=== PATIENT | male | born 1955 | race Caucasian/White ===

== ENCOUNTER 2019-03-04 08:43 | Inpatient (IN) ==
[2019-03-04] MEDS ORDERED: Azithromycin 500 MG in D5% in Water 250 ML IVPB ONE (08:45)
[2019-03-04] MEDS ORDERED: 0.9 % Sodium Chloride 1,000 ML IVC ONE ×2 (08:45→10:08)
[2019-03-04] MEDS ORDERED: cefTRIAXone 2,000 MG in Water for inj. (sterile) 10 ML IVP ONE (08:45)
[2019-03-04] MEDS ORDERED: Ipratropium/Albuterol Neb 3 ML IH ONE (08:45)
[2019-03-04] MEDS ORDERED: methylPREDNISolone 125 MG/2 ML VIAL IVP ONE (08:45)
--- NOTE | 2019-03-04 08:52 | Emergency Department Note ---
Disposition Clinical Impression: Elevated troponin I level Pneumonia Qualifiers: Pneumonia type: due to unspecified organism Laterality: right Lung location: lower lobe of lung Qualified Code(s): J18.1 - Lobar pneumonia, unspecified organism Right rib fracture Qualifiers: Encounter type: initial encounter Rib fracture type: single rib Fracture type: closed Qualified Code(s): S22.31XA - Fracture of one rib, right side, initial encounter for closed fracture Acute renal failure Qualifiers: Acute renal failure type: unspecified Qualified Code(s): N17.9 - Acute kidney failure, unspecified Leukocytosis Qualifiers: Leukocytosis type: other Qualified Code(s): D72.828 - Other elevated white blood cell count Disposition: Admitted As Inpatient Condition: Fair Referrals: NONE,PCP [Non-Partnered Physician] - Forms: ED Satisfaction Letter Time of Disposition: 11:31 SOB HPI - General Chief Complaint: ED Shortness of Breath/Dyspnea Stated Complaint: SOB for days Time Seen by Provider: 03/04/19 08:45 Source: patient, EMS Mode of arrival: EMS Limitations: no limitations Nursing Notes Reviewed: Yes Vital Signs Reviewed: Yes - History of Present Illness Patient reports she has had increased cough and congestion for about one week. He has not had previous evaluation and states "I should have come in sooner". States had gradual increasing shortness of breath. The cough is deep and brings up rear thick phlegm with gradually increasing dyspnea and right-sided chest pain. Since he has an aching discomfort in his chest that is sharp in the right lower lateral chest with a cough. He does report fevers and chills. He does get occasional sweating with the fevers. He denies any jaw, back or arm pain. He denies any lower extremity changes because have trace edema. He denies any ill exposures and questions if he has been around some respiratory irritants. He thinks he was exposed to "germs". He is taking food and fluids without difficulty. Eyes abdominal pains, nausea, diarrhea or abnormal back pain. He arrives by EMS with an IV and an aerosol administered. He states he has a history of congenital heart disease with repair at age 7. He does not have history of coronary disease, diabetes, DVT or PE nor family history of heart disease. States he does have hypertension, elevated cholesterol, is a smoker and he does have elevated BMI. Pt Subjective Complaint: shortness of breath, cough, pain with inspiration, chest pain Onset (ago): week(s) (1) Context: recent illness Severity: moderate, severe Consistency/Duration: gradually worsening Improves with: rest, bronchodilators Worsens with: movement, coughing, inspiration Known history of: COPD Associated symptoms: Reports: chest pain, pain with inspiration, fever, cough, wheezing, sputum production, diaphoresis. Denies: orthopnea, lower extremity pain, polyuria, polydipsia, parasthesias, palpitations, hemoptysis, nausea/vomiting, syncope, abdominal pain, rash Treatment prior to arrival: oxygen, bronchodilator Cough present: Yes Cough Description: Voluntary, Productive, Moist, Wheezy Cough Frequency: Persistent Sputum production: Yes Sputum Amount: Small - Related Data Home oxygen amount: none Home Medications Medication Instructions Recorded Confirmed Atorvastatin [Lipitor] 40 mg PO HS 07/30/18 03/04/19 Lisinopril [Zestril] 40 mg PO DAILY 07/30/18 03/04/19 Loratadine [Allergy Relief] 10 mg PO DAILY 07/30/18 03/04/19 OxyCODONE/APAP 10/325 [Percocet 1 each PO Q6HR PRN 07/30/18 03/04/19 10/325 MG] Naproxen Sodium [Naprelan] 500 mg PO BID 03/04/19 03/04/19 Trazodone HCl 150 mg PO QPM 03/04/19 03/04/19 Previous Rx's Medication Instructions Recorded Guaifenesin [Mucinex] 1,200 mg PO BID #20 tbbp.12hr 12/14/18 Meloxicam 7.5 mg PO DAILY #10 tablet 12/14/18 predniSONE [PredniSONE] 40 mg PO DAILY #10 tablet 12/14/18 Allergies Allergy/AdvReac Type Severity Reaction Status Date / Time No Known Allergies Allergy Verified 10/28/15 19:44 All systems ED: reviewed and negative except as stated. Past Medical History - Past Medical History Attestation: Yes The following information was validated with the patient. Source: patient, old records reviewed, nursing notes reviewed Medical history: Reports: arthritis, COPD, hyperlipidemia, hypertension, other (Spinal stenosis, chronic low back pain). Denies: coronary artery disease Surgical history: Reports: herniorrhaphy, orthopedic, other (Back surgery for spinal stenosis) Psychiatric history: Reports: anxiety, depression - Social History Smoking Status: Current every day smoker Smokeless Tobacco Status: No Alcohol use: Reports: occasionally Drug use: Reports: none Physical Exam - General Limitations: no limitations General appearance: alert, anxious, in distress - Head Head exam: atraumatic, normocephalic, normal inspection - Eye Eye exam: Present: normal appearance, PERRL, EOMI - ENT ENT exam: normal exam, mucous membranes dry - Neck Neck exam: Present: normal inspection, full ROM, trachea midline - Chest Chest inspection: Present: normal inspection, symmetric chest wall rise - Respiratory Respiratory exam: Present: respiratory distress, wheezes, prolonged expiratory phase. Absent: accessory muscle use - Cardiovascular Cardiovascular exam: Present: regular rate, normal rhythm, normal heart sounds. Absent: tachycardia - Abdominal Exam Abdominal exam: Present: soft, Non-Tender, normal bowel sounds. Absent: tenderness, distention, guarding, rebound, rigidity - Extremities Exam Extremities exam: Present: normal inspection, full ROM, normal capillary refill, pedal edema (1+). Absent: tenderness, calf tenderness - Expanded Lower Extremity Exam Neurovascular/Tendon exam: Present: normal capillary refill Gait: not tested/not observed - Neurological Exam Neurological exam: Present: alert, oriented X3 - Psychiatric Psychiatric exam: Present: normal affect, anxious. Absent: agitated - Skin Skin exam: Present: warm, dry, intact, normal color. Absent: diaphoresis, pallor Course Course Narrative: 1009: With return of all testing, the patient has a significant leukocytosis, pneumonia, right-sided rib fracture and an elevated troponin with acute renal failure. Additional fluids have been ordered and a page placed to Dr. Francisco. I will discuss with him whether the patient is appropriate for this facility. 1015: Dr. Francisco desired the patient have a repeat troponin and this is been ordered for 11 AM. If this is not showing progressive elevation believes he can treat the pneumonia, chest wall pain and acute renal failure at this facility. If the troponin shows elevation in patient or he is not responding to treatment he advises that he can transfer the patient to a higher level of care tomorrow. 1131: Patient's repeat troponin is down to 0.05. Verbal orders have been obtained for this patient's observation. Vital Signs Temperature 97.6 F 03/04/19 08:44 Pulse Rate 88 03/04/19 08:44 Respiratory Rate 20 03/04/19 08:44 Blood Pressure 101/65 03/04/19 08:44 O2 Sat by Pulse Oximetry 92 03/04/19 08:44 Temperature 97.6 F 03/04/19 08:44 Pulse Rate 78 03/04/19 10:45 Respiratory Rate 18 03/04/19 10:45 Blood Pressure 109/63 03/04/19 10:45 O2 Sat by Pulse Oximetry 93 03/04/19 10:45 Oxygen Delivery Oxygen Delivery Nasal Cannula Shortness of Breath/Dyspnea - Differential Diagnosis Likely: acute exacerbation of chronic obstructive airways disease, congestive heart failure, pneumonia - Medical Records Medical records reviewed: Yes I reviewed the patient's medical records. - Lab Data Lab results reviewed: Yes I reviewed the patient's lab results. Result diagrams: 03/04/19 09:23 03/04/19 09:23 Lab Results 03/04/19 03/04/19 03/04/19 Range/Units 09:23 09:23 09:23 WBC 19.8 H (4.3-11.1) K/mcL RBC 4.25 (4.19-5.50) M/mcL Hgb 14.2 (12.9-16.9) g/dL Hct 41.1 (37.5-50.1) % MCV 96.7 (83.0-100.0) fL MCH 33.4 H (28.0-33.3) pg MCHC 34.5 (31.6-35.5) g/dL RDW 14.5 (11.5-14.5) % Plt Count 156 (140-400) K/mcL MPV 10.9 (9.4-12.4) fL Immature Gran % 1.4 (0-4) % Seg Neutrophils % 89.8 % Lymphocytes % 2.9 % Monocytes % 5.5 % Eosinophils % 0.1 % Basophils % 0.3 % Neutrophils # 17.8 H (1.6-8.9) K/mcL Lymphocytes # 0.6 (0.6-4.6) K/mcL Monocytes # 1.1 (0.0-1.3) K/mcL Eosinophils # 0.0 (0.0-0.6) K/mcL Basophils # 0.1 (0.0-0.2) K/mcL PT (9.4-12.1) Seconds INR Sodium 134 L (136-145) mEq/L Potassium 4.2 (3.5-5.1) mEq/L Chloride 98 (98-107) mEq/L Carbon Dioxide 26 (23-29) mEq/L BUN > 130 H (8-23) mg/dL Creatinine 3.74 H (0.70-1.30) mg/dL Est GFR ( Amer) 20 L (> 60) Est GFR (Non-Af Amer) 17 L (> 60) BUN/Creatinine Ratio TNP Glucose 148 H (70-105) mg/dL Calculated Osmolality TNP Lactic Acid (0.5-2.2) mmol/L Calcium 8.5 L (8.6-10.3) mg/dL Total Bilirubin 1.5 H (0.3-1.0) mg/dL Direct Bilirubin 0.9 H (0.0-0.2) mg/dL Indirect Bilirubin 0.6 (0.0-1.2) mg/dL AST 76 H (13-39) Units/L ALT 38 (7-52) Units/L Alkaline Phosphatase 206 H (34-104) Units/L Troponin I 0.07 H* (< 0.04) ng/mL B-Natriuretic Peptide 168 H (Less than 100) pg/mL Serum Total Protein 6.6 (6.4-8.9) g/dL Albumin 2.9 L (3.5-5.7) g/dL Globulin 3.7 H (2.4-3.5) g/dL Albumin/Globulin Ratio 0.8 L (1.1-2.2) 03/04/19 03/04/19 03/04/19 Range/Units 09:23 09:32 10:58 WBC (4.3-11.1) K/mcL RBC (4.19-5.50) M/mcL Hgb (12.9-16.9) g/dL Hct (37.5-50.1) % MCV (83.0-100.0) fL MCH (28.0-33.3) pg MCHC (31.6-35.5) g/dL RDW (11.5-14.5) % Plt Count (140-400) K/mcL MPV (9.4-12.4) fL Immature Gran % (0-4) % Seg Neutrophils % % Lymphocytes % % Monocytes % % Eosinophils % % Basophils % % Neutrophils # (1.6-8.9) K/mcL Lymphocytes # (0.6-4.6) K/mcL Monocytes # (0.0-1.3) K/mcL Eosinophils # (0.0-0.6) K/mcL Basophils # (0.0-0.2) K/mcL PT 15.5 H (9.4-12.1) Seconds INR 1.4 Sodium (136-145) mEq/L Potassium (3.5-5.1) mEq/L Chloride (98-107) mEq/L Carbon Dioxide (23-29) mEq/L BUN (8-23) mg/dL Creatinine (0.70-1.30) mg/dL Est GFR ( Amer) (> 60) Est GFR (Non-Af Amer) (> 60) BUN/Creatinine Ratio Glucose (70-105) mg/dL Calculated Osmolality Lactic Acid 1.5 (0.5-2.2) mmol/L Calcium (8.6-10.3) mg/dL Total Bilirubin (0.3-1.0) mg/dL Direct Bilirubin (0.0-0.2) mg/dL Indirect Bilirubin (0.0-1.2) mg/dL AST (13-39) Units/L ALT (7-52) Units/L Alkaline Phosphatase (34-104) Units/L Troponin I 0.05 H* (< 0.04) ng/mL B-Natriuretic Peptide (Less than 100) pg/mL Serum Total Protein (6.4-8.9) g/dL Albumin (3.5-5.7) g/dL Globulin (2.4-3.5) g/dL Albumin/Globulin Ratio (1.1-2.2) - Radiology Data Radiology results reviewed: Yes I reviewed the patient's radiology results. Single view chest x-rays performed. This demonstrates right lower lobe infi ltrate. Patient does not have fusion, pneumothorax or abnormal cardiac silhouette. Patient does have a right seventh rib fracture and a sharply demarcated density in the lung in this area. Neither finding was present on comparison film from 10/28/2015. Impressions Chest X-Ray 03/04/19 08:45 IMPRESSION: Patchy right lower lobe airspace disease could indicate evolving pneumonia. Follow-up x-ray recommended to assure resolution. D/ / 03/04/2019 09:23:33 Ajay Franz MD / Liz Lopez Interpreting Provider: Ajay Franz MD - EKG Data EKG attestation: Yes I reviewed and interpreted this EKG. EKG shows normal: Reports: sinus rhythm, axis, intervals, ST-T waves Rate: Reports: normal (83) [place]/QRS: Reports: RBBB Interpretation: Reports: no acute changes
[2019-03-04] MEDS ORDERED: Ketorolac 30 MG/ML VIAL IVP ONE (09:08)
[2019-03-04] MEDS ORDERED: *HR* HYDROcodone/Acet 5/325 mg TABLET PO ONE (09:08)
[2019-03-04 09:31] LABS: Basophils # 0.1 K/mcL (0.0-0.2); Basophils % 0.3 %; Eosinophils % 0.1 %; Hematocrit 41.1 % (37.5-50.1); Hemoglobin 14.2 g/dL (12.9-16.9); Immature Granulocytes % 1.4 % (0-4); Lymphocytes # 0.6 K/mcL (0.6-4.6); Lymphocytes % 2.9 %; Mean Corpuscular HGB Conc 34.5 g/dL (31.6-35.5); Mean Corpuscular Hemoglobin 33.4 pg (28.0-33.3); Mean Corpuscular Volume 96.7 fL (83.0-100.0); Mean Platelet Volume 10.9 fL (9.4-12.4); Monocytes # 1.1 K/mcL (0.0-1.3); Monocytes % 5.5 %; Neutrophils # 17.8 K/mcL (1.6-8.9); Platelet Count 156 K/mcL (140-400); Red Blood Count 4.25 M/mcL (4.19-5.50); Red Cell Distribution Width 14.5 % (11.5-14.5); Segmented Neutrophils % 89.8 %; White Blood Count 19.8 K/mcL (4.3-11.1)
[2019-03-04 09:39] LABS: INR 1.4; Prothrombin Time 15.5 Seconds (9.4-12.1)
[2019-03-04 09:50] LABS: Alanine Aminotransferase 38 Units/L (7-52); Albumin 2.9 g/dL (3.5-5.7); Albumin/Globulin Ratio 0.8 (1.1-2.2); Alkaline Phosphatase 206 Units/L (34-104); Aspartate Amino Transferase 76 Units/L (13-39); Bilirubin,Direct 0.9 mg/dL (0.0-0.2); Bilirubin,Indirect 0.6 mg/dL (0.0-1.2); Bilirubin,Total 1.5 mg/dL (0.3-1.0); Blood Urea Nitrogen > 130 mg/dL (8-23); Calcium 8.5 mg/dL (8.6-10.3); Carbon Dioxide 26 mEq/L (23-29); Chloride 98 mEq/L (98-107); Globulin 3.7 g/dL (2.4-3.5); Glucose 148 mg/dL (70-105); Potassium 4.2 mEq/L (3.5-5.1); Sodium 134 mEq/L (136-145); Total Protein 6.6 g/dL (6.4-8.9); Troponin I 0.07 ng/mL (< 0.04); eGFR For African Americans 20 (> 60); eGFR For Non-African Americans 17 (> 60)
[2019-03-04] MEDS ORDERED: 0.9 % Sodium Chloride 1,000 ML IVC SCH ×2 (10:15→14:17)
[2019-03-04] MEDS ORDERED: MOM Conc 10 ML UD.LIQ PO PRN (14:17)
[2019-03-04] MEDS ORDERED: Albuterol 2.5 MG/3 ML NEBULIZER IH PRN (14:17)
[2019-03-04] MEDS ORDERED: Naloxone 0.4 MG/ML INJ IVP PRN (14:17)
[2019-03-04] MEDS ORDERED: Mag Hydrox/Al Hydrox/Simeth 30 ML UDC PO PRN (14:17)
[2019-03-04] MEDS ORDERED: Acetaminophen 325 MG TABLET PO PRN (14:17)
[2019-03-04] MEDS ORDERED: Ondansetron ODT 4 MG TAB.RAPDIS SL PRN (14:17)
[2019-03-04] MEDS ORDERED: Ipratropium/Albuterol Neb 3 ML IH SCH (16:00)
[2019-03-04] MEDS ORDERED: predniSONE 20 MG TABLET PO SCH (17:00)
--- NOTE | 2019-03-04 18:04 | Internal Med History&Physical ---
Date of Encounter: 03/04/19 Time of Encounter: 17:35 Assessment and Plan (1) Acute renal failure Current visit: Yes Status: Acute Likely multifactorial due to poor oral intake and NSAID use. IV fluids have been ordered. Repeat labs will be done in a.m. Qualifiers: Acute renal failure type: unspecified Qualified Code(s): N17.9 - Acute kidney failure, unspecified (2) Pneumonia Current visit: Yes Status: Acute Rocephin and Zithromax have been started. Lactobacillus will be added. Qualifiers: Pneumonia type: due to unspecified organism Laterality: right Lung location: lower lobe of lung Qualified Code(s): J18.1 - Lobar pneumonia, unspecified organism (3) Hypertension Current visit: No Status: Chronic Blood pressure borderline low. Medications will be held at this time. Qualifiers: Hypertension type: essential hypertension Qualified Code(s): I10 - Essential (primary) hypertension (4) Elevated troponin I level Current visit: Yes Status: Acute Suspect troponin leak due to demand ischemia. Continue to monitor. Internal Medicine - H&P: HPI Chief complaint: Cough and dyspnea Admitted From: Emergency Dept Plans for Post Hospital Care: Home History of present illness: Mr. Barrera is a 63 year old male who came to emergency room complaining of two-week history of cough and dyspnea. He had fevers and chills but denies vomiting or diarrhea. He reports chronic pain "all over". He was evaluated in emergency room and was found to have evidence of right lower lobe pneumonia and acute renal failure. He was admitted to [facility] floor for ongoing care needs. His respiratory history is significant for having smoked since age 16 up to 3 packs per day. He reports having pulmonary function testing in 2015 and was told he had COPD. He does not wear home oxygen. He has not been tested for sleep apnea. He states his oral intake has been decreased in the past 3 days because of the infection symptoms. Chest CTA 12/14/2018 showed right seventh- ninth rib fractures posteriorly but no obvious pneumonia or other worrisome pathology indicating malignancy. Past Med Surg Social Fam HX - Past Medical History Medical history: arthritis, COPD, hyperlipidemia, hypertension, other Additional medical history: spinal stonisis Psychiatric history: anxiety, depression - Past Surgical History Surgical History: herniorrhaphy, orthopedic, other (Back surgery for spinal stenosis) Additional surgical history: back surgery, spinal stenosis - Social History Smoking Status: Current every day smoker Smokeless Tobacco Status: No Alcohol use: none, occasionally Drug use: none Internal Medicine - H&P: Meds Atorvastatin [Lipitor] 40 mg PO HS 07/30/18 [History] Lisinopril [Zestril] 40 mg PO DAILY 07/30/18 [History] Loratadine [Allergy Relief] 10 mg PO DAILY 07/30/18 [History] OxyCODONE/APAP 10/325 [Percocet 10/325 MG] 1 each PO Q6HR PRN 07/30/18 [History] Guaifenesin [Mucinex] 1,200 mg PO BID #20 tbbp.12hr 12/14/18 [Rx] Meloxicam 7.5 mg PO DAILY #10 tablet 12/14/18 [Rx] predniSONE [PredniSONE] 40 mg PO DAILY #10 tablet 12/14/18 [Rx] Naproxen Sodium [Naprelan] 500 mg PO BID 03/04/19 [History] Trazodone HCl 150 mg PO QPM 03/04/19 [History] Allergy/AdvReac Type Severity Reaction Status Date / Time No Known Allergies Allergy Verified 10/28/15 19:44 All Systems PM: A 10-system review of systems was performed and is negative for pertinent findings except as documented above in the HPI. Review of systems: Review of systems from his October 2015 [facility] hospitalization were reviewed and revised as below. Gen.: His weight has increased from 100.834 kg on 10/30/2015 to 116.392 kg on admission now. Cardiovascular: He has history of hypertension. He had heart surgery at age 7 for "a hole in his heart". He does not know further details. He claims he had an exercise stress test in 2014 which was unremarkable. He denies MA heart failure DVT or pulmonary embolus. Respiratory: As per history of present illness GI: He denies disorders of his liver gallbladder or exocrine pancreas : He denies hematuria dysuria or kidney stones Neurologic: He denies large distribution strokes or seizures. Endocrine: He denies diabetes or thyroid disease but does have hyperlipidemia Hematology/oncology: He denies blood disorders cancer or anemia Psychiatric: He has depression but denies anxiety or other mental health issues Musculoskeletal. He has spinal stenosis and reports surgery approximately 2017. He denies arthritis gout or other bone joint or muscle disorders. - Constitutional Vitals: Temp Pulse Resp BP Pulse Ox 98.2 F 60 14 100/64 90 03/04/19 14:35 03/04/19 14:35 03/04/19 16:35 03/04/19 14:35 03/04/19 16:35 Exam: Gen.: He is a well-developed well-nourished male lying in bed who appears slightly dyspneic and coughs occasionally during exam. HEENT: Head is atraumatic normocephalic. Eyes: EOMI. There is no scleral icterus. Mouth: Mucosa is moist. Neck: Supple and nontender. There is no thyromegaly or adenopathy noted. Heart: Regular without murmurs gallops or ectopics. Tones are soft. Lungs: He has slight prolonged expiratory phase with very minimal wheezing. No inspiratory crackles are heard. Abdomen: Soft and nontender. No masses or guarding are noted. Extremities: There is no cyanosis edema or clubbing noted. Dorsalis pedis and posterior tibial pulses are trace palpable bilaterally. His feet are cool to touch. Neurologic: Mental status: He is talkative and a fair to good historian. He does not remember some details of his history. Cranial nerves: Smile is symmetric. Forehead wrinkles bilaterally. Tongue protrudes midline. EOMI. Motor: There is no pronator drift. Cerebellar: Finger to nose is intact bilaterally. Skin: Warm and dry Internal Med - H&P Results - Labs CBC & Chem 7: 03/04/19 09:23 03/04/19 09:23 Labs: Short CBC 03/04/19 Range/Units 09:23 WBC 19.8 H (4.3-11.1) K/mcL Hgb 14.2 (12.9-16.9) g/dL Hct 41.1 (37.5-50.1) % Plt Count 156 (140-400) K/mcL Neutrophils # 17.8 H (1.6-8.9) K/mcL BMP 03/04/19 09:23 Sodium 134 L Potassium 4.2 Chloride 98 Carbon Dioxide 26 BUN > 130 H Creatinine 3.74 H Glucose 148 H Calcium 8.5 L Cardiac Enzymes 03/04/19 03/04/19 03/04/19 Range/Units 09:23 10:58 14:25 Troponin I 0.07 H* 0.05 H* 0.05 H* (< 0.04) ng/mL Liver Function 03/04/19 Range/Units 09:23 Total Bilirubin 1.5 H (0.3-1.0) mg/dL Direct Bilirubin 0.9 H (0.0-0.2) mg/dL AST 76 H (13-39) Units/L ALT 38 (7-52) Units/L Alkaline Phosphatase 206 H (34-104) Units/L Albumin 2.9 L (3.5-5.7) g/dL - Impressions ITS Impressions Chest X-Ray 03/04/19 08:45 IMPRESSION: Patchy right lower lobe airspace disease could indicate evolving pneumonia. Follow-up x-ray recommended to assure resolution. D/ / 03/04/2019 09:23:33 Ajay Franz MD / Liz Lopez Interpreting Provider: Ajay Franz MD
[2019-03-04] MEDS: traZODone 50 MG TABLET PO SCH (21:17)
[2019-03-04] MEDS: Lactobacillus 1 EACH CAP.SPRINK PO SCH (21:18)
[2019-03-04] MEDS: Budesonide/Formoterol 160/4.5 1 PUFF INH IH SCH (21:19)
--- NOTE | 2019-03-04 23:02 | Electrocardiograph Report ---
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
[2019-03-05 02:41] LABS: Basophils % 0.1 %; Hematocrit 38.8 % (37.5-50.1); Hemoglobin 13.6 g/dL (12.9-16.9); Immature Granulocytes % 1.1 % (0-4); Lymphocytes # 0.5 K/mcL (0.6-4.6); Lymphocytes % 2.9 %; Mean Corpuscular HGB Conc 35.1 g/dL (31.6-35.5); Mean Corpuscular Hemoglobin 33.6 pg (28.0-33.3); Mean Corpuscular Volume 95.8 fL (83.0-100.0); Mean Platelet Volume 11.2 fL (9.4-12.4); Monocytes # 0.6 K/mcL (0.0-1.3); Monocytes % 3.7 %; Neutrophils # 14.9 K/mcL (1.6-8.9); Platelet Count 154 K/mcL (140-400); Red Blood Count 4.05 M/mcL (4.19-5.50); Red Cell Distribution Width 14.5 % (11.5-14.5); Segmented Neutrophils % 92.2 %; White Blood Count 16.2 K/mcL (4.3-11.1)
[2019-03-05 02:57] LABS: Calcium 8.2 mg/dL (8.6-10.3); Potassium 4.5 mEq/L (3.5-5.1)
[2019-03-05] MEDS: *HR* OxyCODONE/APAP 10/325 TABLET PO PRN ×3 (04:32→22:12)
[2019-03-05] MEDS: cefTRIAXone 1,000 MG in Water for inj. (sterile) 10 ML IVP SCH (08:17)
[2019-03-05] MEDS: Aspirin 81 MG TAB.CHEW PO SCH (08:17)
[2019-03-05] MEDS: Lactobacillus 1 EACH CAP.SPRINK PO SCH ×2 (08:17→22:07)
[2019-03-05] MEDS: Azithromycin 500 MG in D5% in Water 250 ML IVPB SCH (08:17)
[2019-03-05] MEDS ORDERED: Lisinopril 20 MG TABLET PO SCH (09:00)
[2019-03-05] MEDS ORDERED: Loratadine 10 MG TABLET PO SCH (09:00)
--- NOTE | 2019-03-05 09:25 | Internal Med Progress Note ---
Date of Encounter: 03/05/19 Time of Encounter: 09:17 - Assessment and plan (1) Acute renal failure Current Visit: Yes Status: Acute Assessment and plan: March 05. BUN and creatinine significantly improved to 113 and 2.16 respectively with estimated GFR 31. Continue IV fluids and withholding NSAIDs. Recheck labs in a.m. Qualifiers: Acute renal failure type: unspecified Qualified Code(s): N17.9 - Acute kidney failure, unspecified (2) Pneumonia Current Visit: Yes Status: Acute Assessment and plan: March 05. WBC decreased to 16.2. Continue Rocephin and Zithromax with lact obacillus. Qualifiers: Pneumonia type: due to unspecified organism Laterality: right Lung location: lower lobe of lung Qualified Code(s): J18.1 - Lobar pneumonia, unspecified organism (3) Hypertension Current Visit: No Status: Chronic Assessment and plan: March 05. Blood pressure remains stable off medication. Qualifiers: Hypertension type: essential hypertension Qualified Code(s): I10 - Essential (primary) hypertension (4) Elevated troponin I level Current Visit: Yes Status: Acute Assessment and plan: March 05. Troponin has trended downward since admission. Continue to observe. - Subjective Interval history: March 05. He has no new complaints and feels better. - Constitutional Vitals: Temp Pulse Resp BP Pulse Ox 98.3 F 60 17 115/67 90 03/05/19 07:36 03/05/19 07:36 03/05/19 07:36 03/05/19 07:36 03/05/19 07:36 Exam: He has resting comfortably in bed and appears in no acute distress. He did not cough during examination. His lungs show no wheezes or crackles. I reviewed his medications and lab results. Internal Medicine: Result - Labs CBC & Chem 7: 03/05/19 02:30 03/05/19 02:30 Labs: Short CBC 03/04/19 03/05/19 Range/Units 09:23 02:30 WBC 19.8 H 16.2 H (4.3-11.1) K/mcL Hgb 14.2 13.6 (12.9-16.9) g/dL Hct 41.1 38.8 (37.5-50.1) % Plt Count 156 154 (140-400) K/mcL Neutrophils # 17.8 H 14.9 H (1.6-8.9) K/mcL BMP 03/04/19 03/05/19 09:23 02:30 Sodium 134 L 137 Potassium 4.2 4.5 Chloride 98 106 Carbon Dioxide 26 22 L BUN > 130 H 113 H Creatinine 3.74 H 2.16 H Glucose 148 H 143 H Calcium 8.5 L 8.2 L Cardiac Enzymes 03/04/19 03/04/19 03/04/19 Range/Units 09:23 10:58 14:25 Troponin I 0.07 H* 0.05 H* 0.05 H* (< 0.04) ng/mL 03/04/19 03/05/19 Range/Units 20:35 02:30 Troponin I 0.04 H* 0.04 H* (< 0.04) ng/mL Liver Function 03/04/19 Range/Units 09:23 Total Bilirubin 1.5 H (0.3-1.0) mg/dL Direct Bilirubin 0.9 H (0.0-0.2) mg/dL AST 76 H (13-39) Units/L ALT 38 (7-52) Units/L Alkaline Phosphatase 206 H (34-104) Units/L Albumin 2.9 L (3.5-5.7) g/dL - ABG Interpretation ABG results: PT/INR, D-dimer PT 15.5 Seconds (9.4-12.1) H 03/04/19 09:23 - Impressions Impressions Chest X-Ray 03/04/19 08:45 IMPRESSION: Patchy right lower lobe airspace disease could indicate evolving pneumonia. Follow-up x-ray recommended to assure resolution. D/ / 03/04/2019 09:23:33 Ajay Franz MD / Liz Lopez Interpreting Provider: Ajay Franz MD Consult Discharge Plan - Plan Referrals: Ramirez Almonte [Primary Care Provider] - 1 week
[2019-03-05] MEDS: Budesonide/Formoterol 160/4.5 1 PUFF INH IH SCH ×2 (10:30→22:48)
[2019-03-05] MEDS: traZODone 50 MG TABLET PO SCH (22:07)
[2019-03-06] MEDS: *HR* Enoxaparin 30 MG/0.3 ML SYRINGE SQ SCH (05:30)
[2019-03-06] MEDS: *HR* OxyCODONE/APAP 10/325 TABLET PO PRN ×2 (05:30→11:40)
[2019-03-06 06:58] LABS: Basophils % 0.2 %; Eosinophils % 0.1 %; Hematocrit 41.4 % (37.5-50.1); Hemoglobin 13.9 g/dL (12.9-16.9); Immature Granulocytes % 0.8 % (0-4); Lymphocytes # 1.1 K/mcL (0.6-4.6); Lymphocytes % 6.9 %; Mean Corpuscular HGB Conc 33.6 g/dL (31.6-35.5); Mean Corpuscular Volume 98.3 fL (83.0-100.0); Monocytes # 0.8 K/mcL (0.0-1.3); Monocytes % 5.1 %; Platelet Count 203 K/mcL (140-400); Red Blood Count 4.21 M/mcL (4.19-5.50); Red Cell Distribution Width 15.3 % (11.5-14.5); Segmented Neutrophils % 86.9 %; White Blood Count 15.7 K/mcL (4.3-11.1)
[2019-03-06 07:15] LABS: BUN/Creatinine Ratio 54 (6-26); Blood Urea Nitrogen 72 mg/dL (8-23); Calcium 8.5 mg/dL (8.6-10.3); Carbon Dioxide 25 mEq/L (23-29); Chloride 106 mEq/L (98-107); Glucose 83 mg/dL (70-105); Osmolality,Calculated 306 (280-300); Potassium 4.7 mEq/L (3.5-5.1); Sodium 138 mEq/L (136-145); Uric Acid 7.4 mg/dL (2.3-7.6); eGFR For African Americans > 60 (> 60); eGFR For Non-African Americans 54 (> 60)
[2019-03-06 07:19] LABS: Neutrophils # 13.6 K/mcL (1.6-8.9)
[2019-03-06] MEDS: cefTRIAXone 1,000 MG in Water for inj. (sterile) 10 ML IVP SCH (09:51)
[2019-03-06] MEDS: Aspirin 81 MG TAB.CHEW PO SCH (09:51)
[2019-03-06] MEDS: Lactobacillus 1 EACH CAP.SPRINK PO SCH ×2 (09:51→19:51)
[2019-03-06] MEDS: Azithromycin 500 MG in D5% in Water 250 ML IVPB SCH (09:52)
[2019-03-06] MEDS: Budesonide/Formoterol 160/4.5 1 PUFF INH IH SCH ×2 (10:29→22:08)
[2019-03-06] MEDS ORDERED: Colchicine 0.6 MG TABLET PO SCH (10:30)
--- NOTE | 2019-03-06 11:02 | Internal Med Progress Note ---
Date of Encounter: 03/06/19 Time of Encounter: 10:20 - Assessment and plan (1) Acute renal failure Current Visit: Yes Status: Acute Assessment and plan: March 05. BUN and creatinine significantly improved to 113 and 2.16 respectively with estimated GFR 31. Continue IV fluids and withholding NSAIDs. Recheck labs in a.m. March 06. BN and creatinine further improved to 72 and 1.34 respectively with estimated GFR 54. Continue IV fluids and monitor renal indices. Qualifiers: Acute renal failure type: unspecified Qualified Code(s): N17.9 - Acute kidney failure, unspecified (2) Pneumonia Current Visit: Yes Status: Acute Assessment and plan: March 05. WBC decreased to 16.2. Continue Rocephin and Zithromax with lactobacillus. March 06. WBC further decreased 15.7 with decrease in left shift on differential. Continue Rocephin and Zithromax with lactobacillus. Qualifiers: Pneumonia type: due to unspecified organism Laterality: right Lung location: lower lobe of lung Qualified Code(s): J18.1 - Lobar pneumonia, unspecified organism (3) Hypertension Current Visit: No Status: Chronic Assessment and plan: March 05. Blood pressure remains stable off medication. Qualifiers: Hypertension type: essential hypertension Qualified Code(s): I10 - Essential (primary) hypertension (4) Elevated troponin I level Current Visit: Yes Status: Acute Assessment and plan: March 05. Troponin has trended downward since admission. Continue to observe. (5) Right wrist pain Current Visit: Yes Status: Acute Assessment and plan: March 06. Uric acid level 7.4. He will be given colchicine and prednisone. Avoid NSAIDs due to renal function. Reassess in a.m. - Subjective Interval history: March 05. He has no new complaints and feels better. March 06. He complains of pain in his right wrist that has developed since yesterday. No other joints are similarly effective although he states he "hurts all over" occasionally. He denies injury or knowledge of gout. - Constitutional Vitals: Temp Pulse Resp BP Pulse Ox 98.8 F 59 20 102/67 92 03/06/19 07:16 03/06/19 07:16 03/06/19 07:16 03/06/19 07:16 03/06/19 07:16 Exam: There is slight increased warmth redness and swelling in the right wrist with pain on passive range of motion. The left wrist is unremarkable. His lungs show slight egophony in the right posterior upper lung field. Left lung is unremarkable. I reviewed his medications and lab results. Internal Medicine: Result - Labs CBC & Chem 7: 03/06/19 05:51 03/06/19 05:51 Labs: Short CBC 03/06/19 Range/Units 05:51 WBC 15.7 H (4.3-11.1) K/mcL Hgb 13.9 (12.9-16.9) g/dL Hct 41.4 (37.5-50.1) % Plt Count 203 (140-400) K/mcL Neutrophils # 13.6 H (1.6-8.9) K/mcL BMP 03/06/19 05:51 Sodium 138 Potassium 4.7 Chloride 106 Carbon Dioxide 25 BUN 72 H Creatinine 1.34 H Glucose 83 Calcium 8.5 L - ABG Interpretation ABG results: PT/INR, D-dimer PT 15.5 Seconds (9.4-12.1) H 03/04/19 09:23 Consult Discharge Plan - Plan Referrals: Ramirez Almonte [Primary Care Provider] - 1 week
[2019-03-06] MEDS: predniSONE 20 MG TABLET PO SCH ×2 (11:39→18:44)
[2019-03-06] MEDS: Acetaminophen 325 MG TABLET PO SCH ×3 (11:39→23:08)
[2019-03-06] MEDS: traZODone 50 MG TABLET PO SCH (19:51)
[2019-03-07] MEDS: Acetaminophen 325 MG TABLET PO SCH (05:12)
[2019-03-07] MEDS: *HR* Enoxaparin 30 MG/0.3 ML SYRINGE SQ SCH (05:12)
[2019-03-07 06:17] LABS: Basophils % 0.1 %; Hematocrit 38.5 % (37.5-50.1); Immature Granulocytes % 0.9 % (0-4); Lymphocytes # 0.8 K/mcL (0.6-4.6); Mean Corpuscular HGB Conc 33.8 g/dL (31.6-35.5); Mean Corpuscular Hemoglobin 33.4 pg (28.0-33.3); Mean Platelet Volume 10.9 fL (9.4-12.4); Monocytes # 0.7 K/mcL (0.0-1.3); Monocytes % 4.2 %; Platelet Count 202 K/mcL (140-400); Red Blood Count 3.89 M/mcL (4.19-5.50); Red Cell Distribution Width 15.3 % (11.5-14.5); Segmented Neutrophils % 89.8 %; White Blood Count 15.9 K/mcL (4.3-11.1)
[2019-03-07 06:18] LABS: Neutrophils # 14.3 K/mcL (1.6-8.9)
[2019-03-07 06:36] LABS: BUN/Creatinine Ratio 46 (6-26); Blood Urea Nitrogen 45 mg/dL (8-23); Calcium 8.3 mg/dL (8.6-10.3); Carbon Dioxide 27 mEq/L (23-29); Chloride 106 mEq/L (98-107); Glucose 113 mg/dL (70-105); Osmolality,Calculated 294 (280-300); Potassium 5.3 mEq/L (3.5-5.1); Sodium 136 mEq/L (136-145); eGFR For African Americans > 60 (> 60); eGFR For Non-African Americans > 60 (> 60)
[2019-03-07 07:57] VITALS: BP 121/71
[2019-03-07] MEDS: Budesonide/Formoterol 160/4.5 1 PUFF INH IH SCH (09:06)
[2019-03-07] MEDS: cefTRIAXone 1,000 MG in Water for inj. (sterile) 10 ML IVP SCH (09:59)
[2019-03-07] MEDS: Aspirin 81 MG TAB.CHEW PO SCH (10:00)
[2019-03-07] MEDS: Azithromycin 500 MG in D5% in Water 250 ML IVPB SCH (10:00)
[2019-03-07] MEDS: Lactobacillus 1 EACH CAP.SPRINK PO SCH (10:00)
[2019-03-07] MEDS: predniSONE 20 MG TABLET PO SCH (10:01)
--- NOTE | 2019-03-07 10:13 | Discharge Summary ---
Date of Encounter: 03/07/19 Time of Encounter: 10:00 - Discharge Diagnosis (1) Acute renal failure Priority: Primary Status: Acute Qualifiers: Acute renal failure type: unspecified Qualified Code(s): N17.9 - Acute kidney failure, unspecified (2) Pneumonia Priority: Secondary Status: Acute Qualifiers: Pneumonia type: due to unspecified organism Laterality: right Lung location: lower lobe of lung Qualified Code(s): J18.1 - Lobar pneumonia, unspecified organism (3) Hypertension Priority: Secondary Status: Chronic Qualifiers: Hypertension type: essential hypertension Qualified Code(s): I10 - Essential (primary) hypertension (4) Elevated troponin I level Priority: Secondary Status: Acute (5) Right wrist pain Priority: Secondary Status: Acute Hospital course: Mr. Barrera is a 63 year old male who came to emergency room complaining of two-week history of cough and dyspnea. He had fevers and chills but denies vomiting or diarrhea. He reports chronic pain "all over". He was evaluated in emergency room and was found to have evidence of right lower lobe pneumonia and acute renal failure. He was admitted to [facility] for ongoing care needs. Initial orders were written by the emergency room physician. I saw him on March 04 and performed the history and physical. He was started on IV fluids. NSAIDs and lisinopril were held. Azotemia significantly improved with BUN and creatinine decreased to 45 and 0.97 respectively by day of discharge with estimated GFR> 60. He will remain off lisinopril and NSAIDs at discharge. Blood pressure remained satisfactory. He was started on Rocephin and Zithromax empirically for pneumonia. WBC decreased to 15.9 by day of discharge with left shift still present on differential. He remained afebrile throughout his hospital stay however. He will be prescribed Ceftin and Zithromax with lactobacillus for 3 additional days at discharge. His PCP can monitor ongoing recovery. He complained of pain in his right wrist on March 06. No other joints were similarly affected. Uric acid level returned at 7.4. He was started on prednisone and colchicine. There was significant decrease in the pain by the following day. He will be started on allopurinol at discharge and received 2 additional days of colchicine and 3 additional days of prednisone. His PCP can monitor. I encouraged him to become a nonsmoker. Room air oximetry will be checked on 6 minute walk prior to discharge. He will follow with his PCP Ramirez Almonte CNP within 1 week. - Time Spent with Patient Total time spent providing and/or coordinating discharge services: - Discharge Medications Prescriptions: New Cefuroxime PO [Ceftin] 500 mg PO Q12HR #6 tablet Colchicine [Colcrys] 0.6 mg PO DAILY #2 tablet Lactobacillus [Culturelle] 1 each PO BID #6 cap.sprink predniSONE [PredniSONE] 10 mg PO BIDWM #6 tablet Azithromycin [Zithromax] 250 mg PO DAILY #3 tablet Allopurinol [Zyloprim 100 MG] 100 mg PO DAILY #30 tablet Continued OxyCODONE/APAP 10/325 [Percocet 10/325 MG] 1 each PO Q6HR PRN PRN Reason: Pain Atorvastatin [Lipitor] 40 mg PO HS Guaifenesin [Mucinex] 1,200 mg PO BID #20 tbbp.12hr Trazodone HCl 150 mg PO QPM Fluticasone/Umeclidin/Vilanter [Trelegy Ellipta 100-62.5-25] 1 each IH BID Discontinued Loratadine [Allergy Relief] 10 mg PO DAILY Lisinopril [Zestril] 40 mg PO DAILY Meloxicam 7.5 mg PO DAILY #10 tablet predniSONE [PredniSONE] 40 mg PO DAILY #10 tablet Naproxen Sodium [Naprelan] 500 mg PO BID Home Medications: Atorvastatin [Lipitor] 40 mg PO HS 07/30/18 [History] OxyCODONE/APAP 10/325 [Percocet 10/325 MG] 1 each PO Q6HR PRN 07/30/18 [History] Guaifenesin [Mucinex] 1,200 mg PO BID #20 tbbp.12hr 12/14/18 [Rx] Fluticasone/Umeclidin/Vilanter [Trelegy Ellipta 100-62.5-25] 1 each IH BID 03/04/19 [History] Trazodone HCl 150 mg PO QPM 03/04/19 [History] Allopurinol [Zyloprim 100 MG] 100 mg PO DAILY #30 tablet 03/07/19 [Rx] Azithromycin [Zithromax] 250 mg PO DAILY #3 tablet 03/07/19 [Rx] Cefuroxime PO [Ceftin] 500 mg PO Q12HR #6 tablet 03/07/19 [Rx] Colchicine [Colcrys] 0.6 mg PO DAILY #2 tablet 03/07/19 [Rx] Lactobacillus [Culturelle] 1 each PO BID #6 cap.sprink 03/07/19 [Rx] predniSONE [PredniSONE] 10 mg PO BIDWM #6 tablet 03/07/19 [Rx] Allergies/Adverse Reactions: Allergy/AdvReac Type Severity Reaction Status Date / Time No Known Allergies Allergy Verified 10/28/15 19:44 Date of admission: 03/05/19 10:03 Primary care physician: Ramirez Almonte - Constitutional Vitals: Temp Pulse Resp BP Pulse Ox 98.5 F 58 16 121/71 95 03/07/19 07:56 03/07/19 07:56 03/07/19 09:06 03/07/19 07:56 03/07/19 09:06 - Patient Status Disposition: Home, Self-Care Condition: Fair - Discharge Instructions Follow Up With: Ramirez Almonte [Primary Care Provider] - 1 week - Diet and Activity Activity: resume usual activities as tolerated Diet: advance to your usual diet
== END 2019-03-07 11:30 | disposition home or self-care (01) | DRG 682 ==
LOC: EMEROOPIK 08:43 → INPPIK 08:43
PROVIDERS: ADMIT Internal Medicine; ATTEND Internal Medicine

== ENCOUNTER 2020-04-07 12:37 | Inpatient (IN) ==
[2020-04-08] MEDS: *HR* Rivaroxaban 10 MG TABLET PO SCH (18:36)
[2020-04-08] MEDS: traZODone 50 MG TABLET PO SCH (18:36)
[2020-04-08] MEDS ORDERED: Albuterol 2.5 MG/3 ML NEBULIZER IH PRN (23:00)
[2020-04-09 06:33] LABS: Basophils % 0.2 %; Hematocrit 46.8 % (37.5-50.1); Hemoglobin 13.6 g/dL (12.9-16.9); Immature Granulocytes % 0.5 % (0-4); Lymphocytes # 0.7 K/mcL (0.6-4.6); Lymphocytes % 10.3 %; Mean Corpuscular HGB Conc 29.1 g/dL (31.6-35.5); Mean Corpuscular Hemoglobin 27.8 pg (28.0-33.3); Mean Corpuscular Volume 95.5 fL (83.0-100.0); Mean Platelet Volume 12.4 fL (9.4-12.4); Monocytes # 0.5 K/mcL (0.0-1.3); Monocytes % 7.4 %; Neutrophils # 5.2 K/mcL (1.6-8.9); Red Cell Distribution Width 18.7 % (11.5-14.5); Segmented Neutrophils % 81.6 %; White Blood Count 6.3 K/mcL (4.3-11.1)
[2020-04-09 06:37] LABS: Platelet Count 82 K/mcL (140-400)
[2020-04-09 07:02] LABS: BUN/Creatinine Ratio 22 (6-26); Blood Urea Nitrogen 20 mg/dL (8-23); Calcium 8.6 mg/dL (8.6-10.3); Carbon Dioxide 43 mEq/L (23-29); Chloride 96 mEq/L (98-107); Glucose 89 mg/dL (70-105); Osmolality,Calculated 294 (280-300); Potassium 4.7 mEq/L (3.5-5.1); Sodium 141 mEq/L (136-145); eGFR For African Americans > 60 (> 60); eGFR For Non-African Americans > 60 (> 60)
[2020-04-09] MEDS: Aspirin Enteric Coated 81 MG Tablet PO SCH (07:59)
[2020-04-09] MEDS: lisinopriL 20 MG TABLET PO SCH (07:59)
[2020-04-09] MEDS: Nicotine 14 MG PATCH.TD24 TD SCH (07:59)
[2020-04-09] MEDS: predniSONE 20 MG TABLET PO SCH (07:59)
[2020-04-09] MEDS: allopurinoL 100 MG TABLET PO SCH (07:59)
[2020-04-09] MEDS ORDERED: NON-FORMULARY MEDICATION 1 EACH EACH (Fluticasone/Umeclidin/Vilanter [Trelegy Ellipta 100- IH SCH (09:00)
[2020-04-09] MEDS ORDERED: Furosemide 40 MG TABLET PO SCH (09:00)
[2020-04-09] MEDS: Tiotropium 18 MCG inhalation IH SCH (10:51)
[2020-04-09] MEDS: Budesonide/Formoterol 160/4.5 1 PUFF INH IH SCH ×2 (10:51→20:26)
[2020-04-09] MEDS: Insulin LISPRO 300 UNITS/3 ML VIAL SQ SCH ×2 (16:58→21:17)
[2020-04-09] MEDS: traZODone 50 MG TABLET PO SCH (17:27)
[2020-04-09] MEDS: *HR* Rivaroxaban 10 MG TABLET PO SCH (17:27)
[2020-04-10] MEDS: Insulin LISPRO 300 UNITS/3 ML VIAL SQ SCH ×4 (08:45→20:39)
[2020-04-10] MEDS: predniSONE 20 MG TABLET PO SCH (08:46)
[2020-04-10] MEDS: allopurinoL 100 MG TABLET PO SCH (08:47)
[2020-04-10] MEDS: Nicotine 14 MG PATCH.TD24 TD SCH (08:47)
[2020-04-10] MEDS: lisinopriL 20 MG TABLET PO SCH (08:47)
[2020-04-10] MEDS: Aspirin Enteric Coated 81 MG Tablet PO SCH (08:47)
[2020-04-10] MEDS ORDERED: Furosemide 20 MG TABLET PO SCH (09:00)
[2020-04-10] MEDS: Budesonide/Formoterol 160/4.5 1 PUFF INH IH SCH ×2 (10:28→20:25)
[2020-04-10] MEDS: Tiotropium 18 MCG inhalation IH SCH (10:28)
[2020-04-10] MEDS: *HR* Rivaroxaban 10 MG TABLET PO SCH (17:13)
[2020-04-10] MEDS: traZODone 50 MG TABLET PO SCH (17:13)
[2020-04-10] MEDS: Melatonin 3 MG TABLET PO PRN (23:39)
[2020-04-11] MEDS: predniSONE 20 MG TABLET PO SCH (07:38)
[2020-04-11] MEDS: Nicotine 14 MG PATCH.TD24 TD SCH (07:38)
[2020-04-11] MEDS: allopurinoL 100 MG TABLET PO SCH (07:39)
[2020-04-11] MEDS: lisinopriL 20 MG TABLET PO SCH (07:39)
[2020-04-11] MEDS: Aspirin Enteric Coated 81 MG Tablet PO SCH (07:39)
[2020-04-11] MEDS: Insulin LISPRO 300 UNITS/3 ML VIAL SQ SCH ×4 (07:39→21:03)
[2020-04-11] MEDS: Tiotropium 18 MCG inhalation IH SCH (07:54)
[2020-04-11] MEDS: Budesonide/Formoterol 160/4.5 1 PUFF INH IH SCH ×2 (07:56→21:37)
[2020-04-11] MEDS: *HR* Rivaroxaban 10 MG TABLET PO SCH (16:38)
[2020-04-11] MEDS: traZODone 50 MG TABLET PO SCH (16:38)
[2020-04-12] MEDS: Nicotine 14 MG PATCH.TD24 TD SCH (08:24)
[2020-04-12] MEDS: predniSONE 20 MG TABLET PO SCH (08:25)
[2020-04-12] MEDS: Aspirin Enteric Coated 81 MG Tablet PO SCH (08:25)
[2020-04-12] MEDS: allopurinoL 100 MG TABLET PO SCH (08:26)
[2020-04-12] MEDS: lisinopriL 20 MG TABLET PO SCH (08:26)
[2020-04-12] MEDS: Insulin LISPRO 300 UNITS/3 ML VIAL SQ SCH ×4 (08:26→20:34)
[2020-04-12] MEDS: Tiotropium 18 MCG inhalation IH SCH (09:05)
[2020-04-12] MEDS: Budesonide/Formoterol 160/4.5 1 PUFF INH IH SCH ×2 (09:06→21:37)
[2020-04-12] MEDS: *HR* Rivaroxaban 10 MG TABLET PO SCH (16:12)
[2020-04-12] MEDS: traZODone 50 MG TABLET PO SCH (16:12)
[2020-04-12] MEDS: Melatonin 3 MG TABLET PO PRN (20:34)
[2020-04-13] MEDS: Insulin LISPRO 300 UNITS/3 ML VIAL SQ SCH ×4 (07:33→21:06)
[2020-04-13] MEDS: Nicotine 14 MG PATCH.TD24 TD SCH (09:13)
[2020-04-13] MEDS: lisinopriL 20 MG TABLET PO SCH (09:15)
[2020-04-13] MEDS: allopurinoL 100 MG TABLET PO SCH (09:15)
[2020-04-13] MEDS: Aspirin Enteric Coated 81 MG Tablet PO SCH (09:15)
[2020-04-13] MEDS: predniSONE 20 MG TABLET PO SCH (09:15)
[2020-04-13] MEDS: Tiotropium 18 MCG inhalation IH SCH (10:39)
[2020-04-13] MEDS: Budesonide/Formoterol 160/4.5 1 PUFF INH IH SCH ×2 (10:39→22:15)
[2020-04-13] MEDS: *HR* Rivaroxaban 10 MG TABLET PO SCH (17:39)
[2020-04-13] MEDS: traZODone 50 MG TABLET PO SCH (17:39)
[2020-04-14] MEDS: Insulin LISPRO 300 UNITS/3 ML VIAL SQ SCH ×4 (07:34→20:38)
[2020-04-14] MEDS: lisinopriL 20 MG TABLET PO SCH (08:45)
[2020-04-14] MEDS: Aspirin Enteric Coated 81 MG Tablet PO SCH (08:46)
[2020-04-14] MEDS: allopurinoL 100 MG TABLET PO SCH (08:46)
[2020-04-14] MEDS: predniSONE 20 MG TABLET PO SCH (08:46)
[2020-04-14] MEDS: Nicotine 14 MG PATCH.TD24 TD SCH (08:52)
[2020-04-14] MEDS: Tiotropium 18 MCG inhalation IH SCH (09:23)
[2020-04-14] MEDS: Budesonide/Formoterol 160/4.5 1 PUFF INH IH SCH ×2 (09:23→20:26)
[2020-04-14] MEDS: *HR* Rivaroxaban 10 MG TABLET PO SCH (17:21)
[2020-04-14] MEDS: traZODone 50 MG TABLET PO SCH (17:22)
[2020-04-15] MEDS: Insulin LISPRO 300 UNITS/3 ML VIAL SQ SCH ×4 (07:16→20:28)
[2020-04-15] MEDS: lisinopriL 20 MG TABLET PO SCH (08:35)
[2020-04-15] MEDS: Nicotine 14 MG PATCH.TD24 TD SCH (08:35)
[2020-04-15] MEDS: Aspirin Enteric Coated 81 MG Tablet PO SCH (08:35)
[2020-04-15] MEDS: allopurinoL 100 MG TABLET PO SCH (08:35)
[2020-04-15] MEDS: predniSONE 20 MG TABLET PO SCH (08:35)
[2020-04-15] MEDS: Budesonide/Formoterol 160/4.5 1 PUFF INH IH SCH ×2 (09:50→23:09)
[2020-04-15] MEDS: Tiotropium 18 MCG inhalation IH SCH (09:50)
[2020-04-15] MEDS: *HR* Rivaroxaban 10 MG TABLET PO SCH (16:35)
[2020-04-15] MEDS: traZODone 50 MG TABLET PO SCH (20:28)
[2020-04-15] MEDS: Melatonin 3 MG TABLET PO PRN (20:28)
[2020-04-16] MEDS: Nicotine 14 MG PATCH.TD24 TD SCH (08:07)
[2020-04-16] MEDS: allopurinoL 100 MG TABLET PO SCH (08:07)
[2020-04-16] MEDS: predniSONE 10 MG TABLET PO SCH (08:07)
[2020-04-16] MEDS: Aspirin Enteric Coated 81 MG Tablet PO SCH (08:07)
[2020-04-16] MEDS: lisinopriL 20 MG TABLET PO SCH (08:07)
[2020-04-16] MEDS: Insulin LISPRO 300 UNITS/3 ML VIAL SQ SCH ×4 (08:08→20:48)
[2020-04-16] MEDS: Tiotropium 18 MCG inhalation IH SCH (09:07)
[2020-04-16] MEDS: Budesonide/Formoterol 160/4.5 1 PUFF INH IH SCH ×2 (09:08→21:25)
[2020-04-16] MEDS: *HR* Rivaroxaban 10 MG TABLET PO SCH (16:34)
[2020-04-16] MEDS: traZODone 50 MG TABLET PO SCH (20:48)
[2020-04-16] MEDS: Melatonin 3 MG TABLET PO PRN (20:49)
[2020-04-17] MEDS: Insulin LISPRO 300 UNITS/3 ML VIAL SQ SCH ×4 (08:14→20:11)
[2020-04-17] MEDS: Aspirin Enteric Coated 81 MG Tablet PO SCH (09:53)
[2020-04-17] MEDS: Nicotine 14 MG PATCH.TD24 TD SCH (09:53)
[2020-04-17] MEDS: predniSONE 10 MG TABLET PO SCH (09:53)
[2020-04-17] MEDS: allopurinoL 100 MG TABLET PO SCH (09:53)
[2020-04-17] MEDS: lisinopriL 20 MG TABLET PO SCH (09:53)
[2020-04-17] MEDS: Tiotropium 18 MCG inhalation IH SCH (10:00)
[2020-04-17] MEDS: Budesonide/Formoterol 160/4.5 1 PUFF INH IH SCH ×2 (10:00→22:48)
[2020-04-17] MEDS: *HR* Rivaroxaban 10 MG TABLET PO SCH (17:12)
[2020-04-17] MEDS: traZODone 50 MG TABLET PO SCH (20:54)
[2020-04-18] MEDS: Insulin LISPRO 300 UNITS/3 ML VIAL SQ SCH ×4 (07:57→20:57)
[2020-04-18] MEDS: predniSONE 10 MG TABLET PO SCH (09:04)
[2020-04-18] MEDS: lisinopriL 20 MG TABLET PO SCH (09:04)
[2020-04-18] MEDS: Aspirin Enteric Coated 81 MG Tablet PO SCH (09:05)
[2020-04-18] MEDS: allopurinoL 100 MG TABLET PO SCH (09:05)
[2020-04-18] MEDS: Nicotine 14 MG PATCH.TD24 TD SCH (09:06)
[2020-04-18] MEDS: Tiotropium 18 MCG inhalation IH SCH (09:16)
[2020-04-18] MEDS: Budesonide/Formoterol 160/4.5 1 PUFF INH IH SCH ×2 (09:16→20:24)
[2020-04-18] MEDS: *HR* Rivaroxaban 10 MG TABLET PO SCH (17:10)
[2020-04-18] MEDS: Melatonin 3 MG TABLET PO PRN (22:20)
[2020-04-18] MEDS: traZODone 50 MG TABLET PO SCH (22:20)
[2020-04-19 06:24] VITALS: BP 129/64
[2020-04-19] MEDS: Nicotine 14 MG PATCH.TD24 TD SCH (07:57)
[2020-04-19] MEDS: allopurinoL 100 MG TABLET PO SCH (07:57)
[2020-04-19] MEDS: Aspirin Enteric Coated 81 MG Tablet PO SCH (07:57)
[2020-04-19] MEDS: lisinopriL 20 MG TABLET PO SCH (07:57)
[2020-04-19] MEDS: Insulin LISPRO 300 UNITS/3 ML VIAL SQ SCH (08:03)
[2020-04-19] MEDS: Tiotropium 18 MCG inhalation IH SCH (10:05)
[2020-04-19] MEDS: Budesonide/Formoterol 160/4.5 1 PUFF INH IH SCH (10:06)
== END 2020-04-19 11:40 | disposition home health service (06) | DRG 56 ==
LOC: INPPIK 04-08 18:15
PROVIDERS: ADMIT Family Medicine; ATTEND Family Medicine

== ENCOUNTER 2022-02-08 18:02 | Inpatient (IN) ==
[2022-02-08] MEDS ORDERED: methylPREDNISolone 125 MG/2 ML VIAL IVP ONE ×2 (18:22→22:45)
[2022-02-08] MEDS ORDERED: Ipratropium/Albuterol Neb 3 ML IH ONE (18:22)
[2022-02-08 18:47] LABS: Basophils # 0.1 K/mcL (0.0-0.2); Basophils % 1.1 %; Eosinophils # 0.3 K/mcL (0.0-0.6); Eosinophils % 3.3 %; Hematocrit 35.3 % (37.5-50.1); Hemoglobin 10.5 g/dL (12.9-16.9); Immature Granulocytes % 0.4 % (0-4); Lymphocytes # 1.4 K/mcL (0.6-4.6); Lymphocytes % 17.1 %; Mean Corpuscular HGB Conc 29.7 g/dL (31.6-35.5); Mean Corpuscular Hemoglobin 30.1 pg (28.0-33.3); Mean Corpuscular Volume 101.1 fL (83.0-100.0); Mean Platelet Volume 10.3 fL (9.4-12.4); Monocytes # 0.7 K/mcL (0.0-1.3); Monocytes % 8.6 %; Neutrophils # 5.7 K/mcL (1.6-8.9); Platelet Count 250 K/mcL (140-400); Red Blood Count 3.49 M/mcL (4.19-5.50); Red Cell Distribution Width 15.3 % (11.5-14.5); Segmented Neutrophils % 69.5 %; White Blood Count 8.1 K/mcL (4.3-11.1)
[2022-02-08 19:01] LABS: BUN/Creatinine Ratio 19 (6-26); Blood Urea Nitrogen 23 mg/dL (8-23); Calcium 9.7 mg/dL (8.6-10.3); Carbon Dioxide 36 mEq/L (23-29); Chloride 97 mEq/L (98-107); Glucose 90 mg/dL (70-105); Osmolality,Calculated 285 (280-300); Potassium 5.5 mEq/L (3.5-5.1); Sodium 136 mEq/L (136-145); eGFR For African Americans > 60 (> 60); eGFR For Non-African Americans 60 (> 60)
[2022-02-08 19:04] LABS: Troponin I 0.03 ng/mL (< 0.04)
[2022-02-08] MEDS ORDERED: Azithromycin 500 MG in 0.9 % Sodium Chloride 250 ML IVPB ONE (19:54)
[2022-02-08] MEDS ORDERED: methylPREDNISolone 60 MG in 0.9 % Sodium Chloride 100 ML IVPB ONE (22:25)
[2022-02-08] MEDS ORDERED: *HR* OxyCODONE/APAP 10/325 TABLET PO PRN (22:25)
[2022-02-08] MEDS ORDERED: Naloxone 0.4 MG/ML INJ IVP PRN (22:25)
[2022-02-08] MEDS: 0.9 % Sodium Chloride 1,000 ML IVC SCH (23:17)
[2022-02-09] MEDS: Ipratropium/Albuterol Neb 3 ML IH SCH ×6 (00:25→19:50)
[2022-02-09 04:27] LABS: Hematocrit 32.5 % (37.5-50.1); Hemoglobin 9.6 g/dL (12.9-16.9); Mean Corpuscular HGB Conc 29.5 g/dL (31.6-35.5); Mean Corpuscular Hemoglobin 30.2 pg (28.0-33.3); Mean Corpuscular Volume 102.2 fL (83.0-100.0); Mean Platelet Volume 10.7 fL (9.4-12.4); Platelet Count 217 K/mcL (140-400); Red Blood Count 3.18 M/mcL (4.19-5.50); Red Cell Distribution Width 15.1 % (11.5-14.5); White Blood Count 5.9 K/mcL (4.3-11.1)
[2022-02-09 04:46] LABS: Alanine Aminotransferase 8 Units/L (7-52); Albumin 3.6 g/dL (3.5-5.7); Albumin/Globulin Ratio 1.1 (1.1-2.2); Alkaline Phosphatase 108 Units/L (34-104); Aspartate Amino Transferase 14 Units/L (13-39); BUN/Creatinine Ratio 26 (6-26); Bilirubin,Total 0.2 mg/dL (0.3-1.0); Blood Urea Nitrogen 30 mg/dL (8-23); Calcium 8.7 mg/dL (8.6-10.3); Carbon Dioxide 34 mEq/L (23-29); Chloride 102 mEq/L (98-107); Globulin 3.3 g/dL (2.4-3.5); Glucose 206 mg/dL (70-105); Osmolality,Calculated 300 (280-300); Potassium 5.2 mEq/L (3.5-5.1); Sodium 139 mEq/L (136-145); Total Protein 6.9 g/dL (6.4-8.9); eGFR For African Americans > 60 (> 60); eGFR For Non-African Americans > 60 (> 60)
[2022-02-09] MEDS: Tiotropium 10 INH DOSE IH SCH (07:45)
[2022-02-09] MEDS: Budesonide/Formoterol 160/4.5 1 PUFF INH IH SCH ×2 (07:45→19:50)
[2022-02-09] MEDS: MethylPREDNISolone 40 MG/ML VIAL IVP SCH ×2 (08:41→17:07)
[2022-02-09] MEDS: Aspirin Enteric Coated 81 MG Tablet PO SCH (08:41)
[2022-02-09] MEDS: 0.9 % Sodium Chloride 1,000 ML IVC SCH (08:41)
[2022-02-09] MEDS ORDERED: lisinopriL 20 MG TABLET PO SCH (09:00)
[2022-02-09 13:27] LABS: Adenovirus Not Detected (Not Detect); Bordetella Pertussis Not Detected (Not Detect); Chlamydophila pneumoniae Not Detected (Not Detect); Coronavirus 229E Not Detected (Not Detect); Coronavirus HKU1 Not Detected (Not Detect); Coronavirus NL63 Not Detected (Not Detect); Coronavirus OC43 Not Detected (Not Detect); Human Metapneumovirus Not Detected (Not Detect); Human Rhinovirus/Enterovirus Not Detected (Not Detect); Influenza A Subtype 2009 H1 Not Detected (Not Detect); Influenza B Not Detected (Not Detect); Mycoplasma pneumoniae Not Detected (Not Detect); Parainfluenza Virus 1 Not Detected (Not Detect); Parainfluenza Virus 2 Not Detected (Not Detect); Parainfluenza Virus 3 Not Detected (Not Detect); Parainfluenza Virus 4 Not Detected (Not Detect); Respiratory Syncytial Virus Not Detected (Not Detect); SARS-CoV-2 Not Detected (Not Detect)
[2022-02-09] MEDS: *HR* Rivaroxaban 10 MG TABLET PO SCH (17:08)
[2022-02-09] MEDS ORDERED: *HR* OxyCODONE Immed Rel 5 MG TABLET PO ONE (20:55)
[2022-02-09] MEDS: cefTRIAXone 1,000 MG in 0.9 % Sodium Chloride Mini Bag 100 ML IVPB SCH (21:21)
[2022-02-09] MEDS: Mirtazapine 15 MG TABLET PO SCH (21:22)
[2022-02-09] MEDS: Azithromycin 500 MG in 0.9 % Sodium Chloride 250 ML IVPB SCH (22:11)
[2022-02-10] MEDS: MethylPREDNISolone 40 MG/ML VIAL IVP SCH ×4 (00:14→23:35)
[2022-02-10] MEDS: Ipratropium/Albuterol Neb 3 ML IH SCH ×6 (00:50→20:33)
[2022-02-10 05:59] LABS: Basophils % 0.1 %; Hematocrit 29.2 % (37.5-50.1); Hemoglobin 8.6 g/dL (12.9-16.9); Immature Granulocytes % 0.7 % (0-4); Lymphocytes # 0.5 K/mcL (0.6-4.6); Lymphocytes % 2.9 %; Mean Corpuscular HGB Conc 29.5 g/dL (31.6-35.5); Mean Corpuscular Hemoglobin 29.8 pg (28.0-33.3); Mean Platelet Volume 11.3 fL (9.4-12.4); Monocytes # 0.4 K/mcL (0.0-1.3); Monocytes % 2.2 %; Neutrophils # 16.8 K/mcL (1.6-8.9); Platelet Count 213 K/mcL (140-400); Red Blood Count 2.89 M/mcL (4.19-5.50); Red Cell Distribution Width 15.6 % (11.5-14.5); Segmented Neutrophils % 94.1 %; White Blood Count 17.9 K/mcL (4.3-11.1)
[2022-02-10 06:14] LABS: BUN/Creatinine Ratio 25 (6-26); Blood Urea Nitrogen 25 mg/dL (8-23); Calcium 8.6 mg/dL (8.6-10.3); Carbon Dioxide 31 mEq/L (23-29); Chloride 102 mEq/L (98-107); Glucose 143 mg/dL (70-105); Osmolality,Calculated 293 (280-300); Potassium 4.8 mEq/L (3.5-5.1); Sodium 138 mEq/L (136-145); eGFR For African Americans > 60 (> 60); eGFR For Non-African Americans > 60 (> 60)
[2022-02-10] MEDS: Aspirin Enteric Coated 81 MG Tablet PO SCH (07:48)
[2022-02-10] MEDS: Tiotropium 10 INH DOSE IH SCH (08:15)
[2022-02-10] MEDS: Budesonide/Formoterol 160/4.5 1 PUFF INH IH SCH ×2 (08:18→20:33)
[2022-02-10] MEDS ORDERED: *HR* LORazepam 0.5 MG TABLET PO PRN (16:21)
[2022-02-10] MEDS: cefTRIAXone 1,000 MG in 0.9 % Sodium Chloride Mini Bag 100 ML IVPB SCH (20:51)
[2022-02-10] MEDS: Mirtazapine 15 MG TABLET PO SCH (20:52)
[2022-02-10] MEDS: Azithromycin 500 MG in 0.9 % Sodium Chloride 250 ML IVPB SCH (22:18)
[2022-02-11] MEDS: Ipratropium/Albuterol Neb 3 ML IH SCH ×5 (00:56→16:16)
[2022-02-11 06:36] VITALS: BP 158/76; PULSE 80; TEMP 97.9
[2022-02-11 07:00] LABS: Basophils % 0.1 %; Hematocrit 29.9 % (37.5-50.1); Hemoglobin 8.9 g/dL (12.9-16.9); Immature Granulocytes % 1.2 % (0-4); Lymphocytes # 0.6 K/mcL (0.6-4.6); Lymphocytes % 3.4 %; Mean Corpuscular HGB Conc 29.8 g/dL (31.6-35.5); Mean Corpuscular Hemoglobin 30.4 pg (28.0-33.3); Mean Platelet Volume 11.2 fL (9.4-12.4); Monocytes # 0.4 K/mcL (0.0-1.3); Monocytes % 2.6 %; Neutrophils # 15.9 K/mcL (1.6-8.9); Platelet Count 213 K/mcL (140-400); Red Blood Count 2.93 M/mcL (4.19-5.50); Red Cell Distribution Width 15.9 % (11.5-14.5); Segmented Neutrophils % 92.7 %; White Blood Count 17.1 K/mcL (4.3-11.1)
[2022-02-11 07:17] LABS: BUN/Creatinine Ratio 25 (6-26); Blood Urea Nitrogen 24 mg/dL (8-23); Calcium 8.6 mg/dL (8.6-10.3); Carbon Dioxide 32 mEq/L (23-29); Chloride 101 mEq/L (98-107); Glucose 142 mg/dL (70-105); Osmolality,Calculated 288 (280-300); Potassium 5.8 mEq/L (3.5-5.1); Sodium 136 mEq/L (136-145); eGFR For African Americans > 60 (> 60); eGFR For Non-African Americans > 60 (> 60)
[2022-02-11] MEDS: Budesonide/Formoterol 160/4.5 1 PUFF INH IH SCH (07:40)
[2022-02-11] MEDS: Tiotropium 10 INH DOSE IH SCH (07:41)
[2022-02-11 07:42] VITALS: RESP 18
[2022-02-11] MEDS: Aspirin Enteric Coated 81 MG Tablet PO SCH (08:21)
[2022-02-11] MEDS: MethylPREDNISolone 40 MG/ML VIAL IVP SCH ×2 (08:21→16:43)
[2022-02-11] MEDS ORDERED: amLODIPine 5 MG TABLET PO SCH (11:07)
[2022-02-11 16:17] VITALS: O2SAT 94
[2022-02-11] MEDS: *HR* Rivaroxaban 10 MG TABLET PO SCH (16:42)
== END 2022-02-11 17:05 | disposition home or self-care (01) | DRG 193 ==
LOC: EMEROOPIK 18:02 → INPPIK 18:02
PROVIDERS: ADMIT Student in an Organized Health Care Education/Training Program; ATTEND Student in an Organized Health Care Education/Training Program